=== PATIENT | female | born 1990 | race Caucasian/White ===

== ENCOUNTER 2023-06-15 21:33 | Inpatient (IN) | payer BC ==
[2023-06-15 21:54] VITALS: BMI 31.6
[2023-06-15] MEDS ORDERED: hydrALAZINE 20 MG/ML VIAL SLOW IVP PRN (22:11)
[2023-06-16] MEDS ORDERED: Diphenoxylate HCl/Atropine Tablet PO PRN (00:03)
[2023-06-16] MEDS ORDERED: Carboprost 250 MCG/ML AMP IM PRN (00:03)
[2023-06-16] MEDS ORDERED: Acetaminophen 500 MG TAB PO PRN (00:03)
[2023-06-16] MEDS ORDERED: hydrALAZINE 20 MG/ML VIAL SLOW IVP PRN (00:03)
[2023-06-16] MEDS ORDERED: fentaNYL 50 mcg/mL 1 mL Vial SLOW IVP PRN (00:03)
[2023-06-16] MEDS ORDERED: Promethazine HCl 25 MG/ML VIAL IM PRN ×2 (00:03→01:37)
[2023-06-16] MEDS ORDERED: Ondansetron PF 4 MG/2 ML Vial IVP PRN ×2 (00:03→01:37)
[2023-06-16] MEDS ORDERED: Methylergonovine 0.2 MG/ML VIAL IM PRN (00:03)
[2023-06-16] MEDS ORDERED: Tranexamic Acid 1,000 MG/10 ML VIAL IVP PRN (00:03)
[2023-06-16] MEDS ORDERED: Misoprostol 200 MCG TAB PR PRN (00:03)
[2023-06-16] MEDS ORDERED: Lidocaine 1% (PF) 30 ML VIAL SC PRN (00:05)
[2023-06-16] MEDS ORDERED: Ibuprofen 800 MG TAB PO PRN (00:05)
[2023-06-16] MEDS ORDERED: HYDROcodone/Acetaminophen 5/325 mg Tablet PO PRN (00:05)
[2023-06-16] MEDS ORDERED: NS w/ Oxytocin 30 units 500 ML IV SCH (00:15)
[2023-06-16 00:50] LABS: Hematocrit 31.9 % (34.9-44.5); Hemoglobin 10.8 g/dL (12.0-15.5); Mean Corpuscular HGB CONC 33.9 g/dL (32.0-36.0); Mean Corpuscular Volume 88.6 fl (81.6-98.3); Mean Platelet Volume 11.4 fl (7.4-10.4); Platelet Count 296 10x3/uL (150-450); RBC Distribution Width 13.2 % (11.5-14.5); White Blood Cell (WBC) Count 9.3 10x3/uL (3.5-10.5)
[2023-06-16] MEDS ORDERED: fentaNYL/Ropivacaine Epidural 100 ML ONE (00:51)
[2023-06-16 01:21] LABS: HBSAg Index 0.28 S/CO (0-0.99); Hep B Surf Ag - L&D Non-Reactive S/CO (NonReactive); Syphilis Antibody Nonreactive (Nonreactive); Syphilis Antibody Index 0.03 S/CO (<1.00 Non-Reactive)
[2023-06-16] MEDS: Lactated Ringer's 1,000 ML IV SCH ×2 (01:26→02:26)
[2023-06-16] MEDS ORDERED: ePHEDrine Sulfate 50 MG/10 ML VIAL SLOW IVP PRN (01:37)
[2023-06-16] MEDS ORDERED: diphenhydrAMINE 50 MG/ML VIAL IVP PRN (01:37)
[2023-06-16] MEDS ORDERED: Lactated Ringer's 500 ML IV PRN (01:37)
[2023-06-16] MEDS ORDERED: Moisturizing Cream (Eucerin) 113 GM JAR TOP PRN (01:37)
[2023-06-16] MEDS ORDERED: Naloxone HCl 0.4 mg/ml Vial IVP PRN ×2 (01:37)
[2023-06-16] MEDS ORDERED: Acetaminophen 325 MG TAB PO PRN (01:37)
[2023-06-16] MEDS ORDERED: fentaNYL 2 mcg/Ropivacaine 0.2% Epidural 100 ML CADD EPIDURAL SCH (01:45)
[2023-06-16] MEDS ORDERED: Communication Order-Pharmacy FS SCH (01:45)
[2023-06-16] MEDS: Clindamycin/D5W 900 MG in Premix Bag 1 BAG IVPB SCH ×2 (15:23→23:24)
[2023-06-16 15:27] LABS: Bilirubin Neg (Negative); Blood, Urine 250 (Negative); Clarity Clear (Clear); Glucose, Urine (Dipstick) Normal (Negative); Ketone, Urine Negative (Negative); Leukocyte 500 (Negative); Nitrite Negative (Negative); Protein, Urine (Dipstick) 100 mg/dl (Neg-Trace); Urobilinogen Normal mg/dL (Less than 2)
[2023-06-16 15:37] LABS: Bacteria/HPF 2+ HPF (None Seen); CAUTI Indications for Culture Fever or rigors; RBC/HPF Greater than 50 HPF (0-3); Squamous Epithelial 0-3 HPF (0-3); WBC/HPF Greater Than 50 HPF (0-3)
[2023-06-16 15:38] LABS: Mucous/LPF Rare LPF (<2+)
[2023-06-16 15:39] LABS: Urine Culture Reflex Yes Yes
[2023-06-16] MEDS: Gentamicin 312 MG, Admixture Fee 1 EACH in Sodium Chloride 0.9% 100 ML IVPB SCH (15:56)
[2023-06-16 16:00] LABS: SARS-CoV-2 NAA Rapid Test Not Detected (NotDetected)
[2023-06-17] MEDS ORDERED: Morphine PF 10 MG/10 ML VIAL ONE (04:57)
[2023-06-17] MEDS ORDERED: Oxytocin 10 UNITS/ML VIAL ONE ×2 (04:57→06:33)
[2023-06-17] MEDS ORDERED: Ondansetron PF 4 MG/2 ML Vial ONE (04:57)
[2023-06-17] MEDS ORDERED: Dexamethasone 4 mg/ml Vial ONE (04:57)
[2023-06-17] MEDS ORDERED: fentaNYL 50 mcg/mL 1 mL Vial ONE ×2 (04:57→08:18)
[2023-06-17] MEDS ORDERED: Ketorolac Tromethamine 30 MG/ML VIAL ONE (04:57)
[2023-06-17] MEDS ORDERED: Phenylephrine 10 MG/ML VIAL ONE (04:57)
[2023-06-17] MEDS: CEFAZOLIN 2 GM VIAL ONE ×2 (05:08→05:09)
[2023-06-17] MEDS ORDERED: Lidocaine 2% MPF 10 ML AMP (For Epidural Use) ONE (06:01)
[2023-06-17] MEDS ORDERED: diphenhydrAMINE 50 MG/ML VIAL ONE (06:07)
[2023-06-17 06:26] LABS: RapidComm Collect By CBN
[2023-06-17 06:27] LABS: RapidComm Collect By CBN; pH (Cord, venous) 7.249 (7.250-7.350)
[2023-06-17] MEDS ORDERED: Moisturizing Cream (Eucerin) 113 GM JAR TOP PRN (06:48)
[2023-06-17] MEDS ORDERED: diphenhydrAMINE 50 MG/ML VIAL IVP PRN (06:48)
[2023-06-17] MEDS ORDERED: Fentanyl 50 MCG/1 ML VIAL SLOW IVP PRN (06:48)
[2023-06-17] MEDS ORDERED: Promethazine HCl 25 MG/ML VIAL IM PRN (06:48)
[2023-06-17] MEDS ORDERED: Naloxone HCl 0.4 mg/ml Vial IV PRN (06:48)
[2023-06-17] MEDS ORDERED: Promethazine HCl 25 MG SUPP PR PRN (06:48)
[2023-06-17] MEDS ORDERED: Meperidine HCl/PF 25 MG/ML VIAL SLOW IVP PRN (06:48)
[2023-06-17] MEDS ORDERED: Ondansetron HCl/PF 4 MG/2 ML Vial IVP PRN (06:48)
[2023-06-17] MEDS ORDERED: Naloxone HCl 0.4 mg/ml Vial IVP PRN ×2 (06:48)
[2023-06-17] MEDS ORDERED: Ondansetron PF 4 MG/2 ML Vial IVP PRN (06:48)
[2023-06-17] MEDS ORDERED: Ketorolac Tromethamine 30 MG/ML VIAL IVP SCH (07:00)
[2023-06-17] MEDS ORDERED: Communication Order-Pharmacy FS SCH (07:00)
[2023-06-17] MEDS: Clindamycin/D5W 900 MG in Premix Bag 1 BAG IVPB SCH ×3 (08:12→23:33)
[2023-06-17] MEDS ORDERED: Bupivacaine 0.25% HCL 30 ML VIAL ONE (09:00)
[2023-06-17] MEDS ORDERED: fentaNYL/Ropivacaine Epidural 0 ML ONE (09:29)
[2023-06-17] MEDS ORDERED: Simethicone Chewable 80 MG TAB PO PRN (10:27)
[2023-06-17] MEDS ORDERED: diphenhydrAMINE 25 MG CAP PO PRN (10:27)
[2023-06-17] MEDS ORDERED: Misoprostol 200 MCG TAB PR PRN (10:27)
[2023-06-17] MEDS ORDERED: Lanolin Ointment 7 GM TUBE TOP PRN (10:27)
[2023-06-17] MEDS ORDERED: Boostrix 0.5 ML (Tdap) VIAL (>/=7 yrs of age) IM ONE (10:27)
[2023-06-17] MEDS ORDERED: Methylergonovine 0.2 MG/ML VIAL IM PRN (10:27)
[2023-06-17] MEDS ORDERED: NS w/ Oxytocin 30 units 500 ML IV SCH (10:27)
[2023-06-17] MEDS: Ketorolac Tromethamine 30 MG/ML VIAL IVP PRN ×2 (11:24→20:47)
[2023-06-17] MEDS ORDERED: Prenatal Vitamin 1 TAB PO SCH (12:00)
[2023-06-17] MEDS ORDERED: Ferrous Sulfate 325 MG TAB PO SCH (12:00)
[2023-06-17] MEDS: Gentamicin 312 MG, Admixture Fee 1 EACH in Sodium Chloride 0.9% 100 ML IVPB SCH (15:51)
[2023-06-18 03:59] LABS: Hematocrit 25.7 % (34.9-44.5); Hemoglobin 8.6 g/dL (12.0-15.5); Mean Corpuscular HGB CONC 33.5 g/dL (32.0-36.0); Mean Corpuscular Hemoglobin 30.2 pg (27.0-33.0); Mean Corpuscular Volume 90.2 fl (81.6-98.3); Mean Platelet Volume 11.3 fl (7.4-10.4); Platelet Count 266 10x3/uL (150-450); RBC Distribution Width 13.1 % (11.5-14.5); Red Blood Cell (RBC) Count 2.85 10x6/uL (3.90-5.03); White Blood Cell (WBC) Count 13.8 10x3/uL (3.5-10.5)
[2023-06-18] MEDS: HYDROcodone/Acetaminophen 5/325 mg Tablet PO PRN ×5 (04:29→23:12)
[2023-06-18] MEDS: Clindamycin/D5W 900 MG in Premix Bag 1 BAG IVPB SCH (06:57)
[2023-06-18] MEDS: Ferrous Sulfate 325 MG TAB PO SCH ×3 (08:00→21:31)
[2023-06-18] MEDS: Prenatal Vitamin 1 TAB PO SCH (08:26)
[2023-06-18] MEDS: Ibuprofen 800 MG TAB PO SCH ×2 (14:11→21:30)
[2023-06-19] MEDS: Ibuprofen 800 MG TAB PO SCH ×2 (05:01→14:00)
[2023-06-19] MEDS: HYDROcodone/Acetaminophen 5/325 mg Tablet PO PRN ×2 (07:31→12:32)
[2023-06-19 09:04] VITALS: BP 128/84; TEMP 97.8
[2023-06-19] MEDS: Ferrous Sulfate 325 MG TAB PO SCH (09:37)
[2023-06-19] MEDS: Prenatal Vitamin 1 TAB PO SCH (09:37)
== END 2023-06-19 14:05 | disposition home or self-care (01) | DRG 786 ==
LOC: CSHLD/OP 21:33 → CSHLD 06-16 00:30 → CSHPP 06-17 10:01
PROVIDERS: ADMIT Obstetrics & Gynecology; ATTEND Obstetrics & Gynecology
PROC: 10D00Z1 Extraction of Products of Conception, Low, Open Approach (ICD-10-PCS; principal; 2023-06-17)
PROC: 10H07YZ Insertion of Other Device into Products of Conception, Via Natural or Artificial Opening (ICD-10-PCS; 2023-06-17)
PROC: 4A133R1 Monitoring of Arterial Saturation, Peripheral, Percutaneous Approach (ICD-10-PCS; 2023-06-17)
PROC: 3E033VJ Introduction of Other Hormone into Peripheral Vein, Percutaneous Approach (ICD-10-PCS; 2023-06-17)
PROC: 3E033XZ Introduction of Vasopressor into Peripheral Vein, Percutaneous Approach (ICD-10-PCS; 2023-06-17)
PROC: 3E03329 Introduction of Other Anti-infective into Peripheral Vein, Percutaneous Approach (ICD-10-PCS; 2023-06-17)
DX: O32.4XX0 Maternal care for high head at term, not applicable or unspecified (principal); O41.1230 Chorioamnionitis, third trimester, not applicable or unspecified; O75.2 Pyrexia during labor, not elsewhere classified; D62 Acute posthemorrhagic anemia; O76 Abnormality in fetal heart rate and rhythm complicating labor and delivery; Z20.822 Contact with and (suspected) exposure to COVID-19; O77.0 Labor and delivery complicated by meconium in amniotic fluid; Z3A.40 40 weeks gestation of pregnancy; O48.0 Post-term pregnancy; O62.2 Other uterine inertia; Z37.0 Single live birth
CPT/HCPCS: 36415; 51702; 81001; 82805; 85027; 86780; 86850; 86900; 86901; 87040; 87077; 87086; 87186; 87340; 99285; J1100; J1200; J1580; J1885; J2274; J2370; J2405; J2590; J3010; J3490; J7120; S0020